=== PATIENT | female | born 1975 | race Caucasian/White ===

== ENCOUNTER 2017-07-08 20:10 | Emergency (ER) | payer BC ==
[2017-07-08] MEDS ORDERED: HYDROmorphone 2 MG/ML SDV IVPUSH ONE (20:34)
[2017-07-08] MEDS ORDERED: Ondansetron 4 MG/2 ML SDV IVPUSH ONE (20:34)
[2017-07-08] MEDS ORDERED: Sodium Chloride 0.9% 1,000 ML IV SCH (20:45)
[2017-07-08] MEDS ORDERED: Iopamidol 755 Mg/ML 100 ML Bottle IV ONE (21:38)
[2017-07-09] MEDS ORDERED: hydrOXYzine HCl 50 MG/ML SDV IM ONE (00:03)
[2017-07-09 00:33] VITALS: BP 132/82
--- NOTE | 2017-07-09 04:06 | ER ---
DATE SEEN: 07/08/2017 ADDENDUM: CHIEF COMPLAINT: Abdominal pain. This is an addendum to the clinical note by Dr. Olson's related CT scan report to the patient. The CT showed some two poorly described masses in the adnexa, possibly cysts, which could or could not account for the patient's symptoms. I suggested that the patient be seen on Monday by Josie Santa to obtain an ultrasound for further delineation of this masses and the patient was given Vistaril 100 mg IM to help with the nausea. She was discharged in satisfactory condition at 12:15 a.m. /[id number] YULIYA/CANDE
--- NOTE | 2017-07-10 20:10 | ER ---
DATE SEEN: 07/08/2017 TIME SEEN: The patient was seen at 2000 hours. HISTORY OF PRESENT ILLNESS: This 41-year-old, , 2, para 2 with history of one previous comes in with a sudden onset at 1700 hours of a 10/10 shooting sharp pressure-like suprapubic left and right lower quadrant pain that is nonradiating. She had the urge to pass her bowels and bladder with minimal success. Pain is 10/10 and then gradually relented to 5/10 in intensity after she lied down. Again she got up after the pain was increasing, had a hot shower and this resulted in relief. However, the pain came back at 1940 hours and has been relentless. She presents to the ED about 2000 hours. She has mild nausea, but denies fever, chills, vomiting, constipation, diarrhea, blood in her black tarry stools. Last menstrual period was 5 days ago 07/03/2017, it was not abnormal. Today, she did not perform any unusual tasks. She lifts some chunks of wood, but not heavy loads of wood, there were small pieces of wood and not significant. She denies dyspareunia or vaginal discharge PREVIOUS SURGERY: , appendectomy (in high school). No past medical history of kidney infections - pyelonephritis but she has had intermittent mild urinary tract infections of minimal consequence. . No history of abuse or abdominal trauma. No history of falls. REVIEW OF SYSTEMS: Negative except for as noted above. No history of renal stones or abdominal adhesions. HEENT is negative. No sinusitis, sore throat, cough, no shortness of breath, chest pain, irregular heartbeat. No history of heart disease, rheumatic fever. No chest pain. No syncope, near syncope, or palpitations. GI: No constipation, blood in her stool, black tarry stool, or change in bowels. No diarrhea. No GERD. No ulcer disease. No GI bleed. No hematemesis. No esophagitis. : 2, para 2-0-0-2, one . Last menstrual period 07/03/2017. MUSCULOSKELETAL: Negative. No history of gout or arthritis. NEURO: Negative history for headaches, seizures, or head injury. PSYCHIATRIC: Negative. PHYSICAL EXAMINATION: VITAL SIGNS: Blood pressure 167/97, heart rate 75 and regular, respirations 21, oxygen saturation 99%, temperature is 36.9 degrees centigrade. GENERAL: The patient is in marked pain. She has marked pain in her lower pelvis. She would like to get up and move around from the chair to the gurney. HEENT: PERRLA intact. Pharynx without abnormality. No thyromegaly. No masses in neck. No cervical adenopathy. NECK: Supple. Nontender neck. LUNGS: Clear to auscultation without rales, rhonchi, or wheezes. HEART: S1, S2. No murmur. ABDOMEN: Soft with marked guarding in the lower abdominal wall, any excessive pressure causes marked pain. She has no CVA percussion tenderness. PELVIC: Not performed. EXTREMITIES: Lower extremities without edema, without linear fascial structure tenderness. Deep tendon reflexes present in the upper and lower extremities. Cranial nerves 2 through 12 intact. WORKING DIAGNOSES: Abdominal pain, rule out ovarian torsion, rule out ruptured ovarian cyst, rule out small bowel obstruction, rule out STD, rule out ectopic , rule out trauma, rule out volvulus adhesions, torsion or intussusception. PLAN: The patient received Dilaudid and 1000 mL of normal saline flush. CAT scan with IV contrast, CBC, CMP, lactic acid. Status discussed with Dr. Durán. The patient was transferred to his care. /[id number] GUERRERO/CANDE CALVO
== END 2017-07-09 00:20 | disposition home or self-care (01) ==
LOC: FB.ED 20:10
DX: R10.31 Right lower quadrant pain (principal)
CPT/HCPCS: 36415; 74177; 80053; 80305; 81025; 82150; 83605; 85025; 87491; 87591; 96361; 96372; 96374; 96375; 99284; J1170; J2405; J3410; J7040; Q9967

== ENCOUNTER 2018-11-14 15:27 | Emergency (ER) | payer BC ==
[2018-11-14] MEDS ORDERED: Ondansetron 4 MG Tab.DIS PO ONE (15:28)
[2018-11-14] MEDS ORDERED: Ondansetron 4 MG/2 ML SDV IVPUSH ONE (15:37)
[2018-11-14] MEDS ORDERED: Sodium Chloride 0.9% 1,000 ML IV ONE ×2 (15:37→17:07)
[2018-11-14] MEDS ORDERED: Pantoprazole 40 MG Vial IVPUSH ONE (15:38)
[2018-11-14] MEDS ORDERED: HYDROmorphone 2 MG/ML SDV IVPUSH ONE (15:40)
--- NOTE | 2018-11-14 15:47 | EDM.PDOC ---
ED HPI GENERAL MEDICAL PROBLEM - General Stated Complaint: NAUSEA VOMITTING Time Seen by Provider: 11/14/18 15:27 Source of Information: Reports: Patient, Family History Limitations: Reports: Other (abdominal pain) - History of Present Illness INITIAL COMMENTS - FREE TEXT/NARRATIVE: 42 y.o.w.f with a H/O hysterectomy/tubal ligation, came to the ed due to sudden onset of epigastic and RUQ abdominal pain, after eating spicy/fatty food. No trauma to abdomen. Pt felt extremely nauseated and was vomiting multiple times [employer]. She denies a GBD in the past. Her sister had similar symptoms, all tests were neg and after ponce GB was removed, her symptoms subside. No C/P, no F/C or any other acute medical issues. BP 139/78 RR 18 Pulse ox 100% on RA Pulse 105 Temp 36.8 Onset Date: 11/14/18 Onset Time: 13:00 Duration: Hour(s):, Getting Worse, Intermittent Location: Reports: Abdomen Quality: Reports: Ache, Burning, Dull, Pressure Severity: Moderate Improves with: Reports: Medication, Rest Worsens with: Reports: Eating, Movement Context: Reports: Other Associated Symptoms: Reports: Loss of Appetite, Nausea/Vomiting, Weakness Abdominal Pain Score (Numeric/FACES): 4 - Related Data Allergies Allergy/AdvReac Type Severity Reaction Status Date / Time Penicillins Allergy Anaphylactic Verified 11/14/18 20:44 Shock Tetracyclines Allergy Cannot Verified 11/14/18 20:44 Remember Home Meds: Home Meds Citalopram [Celexa] 20 mg PO DAILY 07/08/17 [History] Diclofenac Sodium [IJD: Diclofenac Sodium] 75 mg PO WITHBREAKFAST 07/08/17 [ History] Ondansetron [Zofran ODT] 4 mg PO Q6H PRN #20 tab.dis 11/14/18 [Rx] Past Medical History - Past Surgical History HEENT Surgical History: Reports: Tonsillectomy GI Surgical History: Reports: Appendectomy Female Surgical History: Reports: Section, Tubal Ligation ED ROS GENERAL - Review of Systems Review Of Systems: See Below Constitutional: Reports: Decreased Appetite HEENT: Reports: No Symptoms Respiratory: Reports: No Symptoms Cardiovascular: Reports: No Symptoms Endocrine: Reports: No Symptoms GI/Abdominal: Reports: Abdominal Pain, Nausea, Vomiting : Reports: No Symptoms Musculoskeletal: Reports: No Symptoms Skin: Reports: No Symptoms Neurological: Reports: No Symptoms Psychiatric: Reports: No Symptoms Hematologic/Lymphatic: Reports: No Symptoms Immunologic: Reports: No Symptoms ED EXAM, GI/ABD - Physical Exam Exam: See Below Exam Limited By: No Limitations General Appearance: Alert, WD/WN, Moderate Distress, Obese Eyes: Bilateral: Normal Appearance Ears: Normal External Exam Nose: Normal Inspection Throat/Mouth: Normal Lips, Normal Voice, No Airway Compromise, Other (dry mucsal membranes) Head: Atraumatic, Normocephalic Neck: Normal Inspection, Supple, Non-Tender Respiratory/Chest: No Respiratory Distress, Lungs Clear, Normal Breath Sounds, No Accessory Muscle Use Cardiovascular: Normal Peripheral Pulses, Regular Rate, Rhythm, No Edema, No Gallop, No JVD, No Murmur GI/Abdominal Exam: No Mass, Pelvis Stable, Tender (RUQ af abdomen and epigatsric ), Other (nl. soft stool, no blood) (Female) Exam: Deferred Rectal (Female) Exam: Deferred Back Exam: Normal Inspection, Full Range of Motion Extremities: Normal Inspection, Normal Range of Motion, Non-Tender, No Pedal Edema Neurological: Alert, Oriented, CN II-XII Intact, Normal Cognition, Normal Gait Psychiatric: Normal Affect, Normal Mood Skin Exam: Warm, Dry, Intact, Normal Color, No Rash Lymphatic: No Adenopathy Course - Vital Signs Text/Narrative:: 42 y.o.w.f with a H/O hysterectomy/tubal ligation, came to the ed due to sudden onset of epigastic and RUQ abdominal pain, after eating spicy/fatty food. No trauma to abdomen. Pt felt extremely nauseated and was vomiting multiple times [employer]. She denies a GBD in the past. Her sister had similar symptoms, all tests were neg and after ponce GB was removed, her symptoms subside. No C/P, no F/C or any other acute medical issues. BP 139/78 RR 18 Pulse ox 100% on RA Pulse 105 Temp 36.8 PE: WNWD WF with N/V and upper ab. pain Imaging: US abd. limited: Neg as per RAD. HIDA maya not available. Labs: CBC: WBC 10.1 HGB 16.1 HCT 46.7 Na 137 K 3.3 BUN 20 Cr. 0.9 GFR > 60 Amylase Nl Ca 9.5 Impression: RUQ abd. and epigastric pain with neg U/S , Dehydration Tx: Zofran, NS, KAIT costataroni, Teresitaid, Reglan Reexam: Improved. Pt stated she is ready to go home and F/U at [facility] for further W/U and a possible HIDA scan, no available at this time in this Hospital. Plan: D/C with instructions. Last Recorded V/S: Last Vital Signs Temp 36.2 C 11/14/18 15:27 Pulse 96 11/14/18 17:15 Resp 18 11/14/18 17:15 BP 128/78 11/14/18 17:15 Pulse Ox 100 11/14/18 17:15 - Orders/Labs/Meds Orders: Active Orders 24 hr Category Date Time Status Abdomen Ltd [US] Stat Exams 11/14/18 15:37 Taken UA W/MICROSCOPIC [URIN] Stat Lab 11/14/18 17:36 Ordered Labs: Laboratory Tests 11/14/18 11/14/18 Range/Units 15:45 15:45 WBC 10.2 (4.5-12.0) X10-3/uL RBC 5.23 H (3.23-5.20) x10(6)uL Hgb 16.1 H (11.5-15.5) g/dL Hct 46.7 (30.0-51.3) % MCV 89.3 (80-96) fL MCH 30.8 (27.7-33.6) pg MCHC 34.5 (32.2-35.4) g/dL RDW 13.4 (11.5-15.5) % Plt Count 366 (125-369) X10(3)uL MPV 8.4 (7.4-10.4) fL Add Manual Diff Yes Neutrophils % (Manual) 95 H (46-82) % Lymphocytes % (Manual) 2 L (13-37) % Monocytes % (Manual) 3 L (4-12) % Sodium 137 (135-145) mmol/L Potassium 3.3 L (3.5-5.3) mmol/L Chloride 101 (100-110) mmol/L Carbon Dioxide 22 (21-32) mmol/L BUN 20 H (7-18) mg/dL Creatinine 0.9 (0.55-1.02) mg/dL Est Cr Clr Drug Dosing TNP Estimated GFR (MDRD) > 60 (>60) BUN/Creatinine Ratio 22.2 H (9-20) Glucose 129 H (80-116) mg/dL Calcium 9.5 (8.6-10.2) mg/dL Total Bilirubin 1.1 (0.1-1.3) mg/dL Direct Bilirubin 0.20 (0.10-0.20) mg/dL AST 17 (5-25) IU/L ALT 39 H (12-36) U/L Alkaline Phosphatase 93 (56-112) IU/L Total Protein 7.9 (6.0-8.0) g/dL Albumin 4.4 (3.5-5.2) g/dL Amylase 29 (25-115) U/L Meds: Medications Discontinued Medications Generic Name Dose Route Start Last Admin Trade Name Freq PRN Reason Stop Dose Admin Al Hydroxide/Mg Hydroxide 15 0 ml 11/14/18 16:29 11/14/18 17:13 ml/ Lidocaine HCl 15 ml PO 11/14/18 16:30 30 ml ONETIME ONE Administration Hydromorphone HCl 0.5 mg 11/14/18 15:40 11/14/18 15:52 Dilaudid IVPUSH 11/14/18 15:41 0.5 mg ONETIME ONE Administration Sodium Chloride 1,000 mls @ 999 mls/hr 11/14/18 15:37 11/14/18 15:50 Normal Saline IV 11/14/18 16:37 999 mls/hr .BOLUS ONE Administration Sodium Chloride 1,000 mls @ 999 mls/hr 11/14/18 17:07 11/14/18 17:17 Normal Saline IV 11/14/18 18:07 999 mls/hr .BOLUS ONE Administration Metoclopramide HCl 10 mg 11/14/18 17:38 11/14/18 17:45 Reglan IVPUSH 11/14/18 17:39 10 mg ONETIME ONE Administration Ondansetron HCl 8 mg 11/14/18 15:37 11/14/18 15:50 Zofran IVPUSH 11/14/18 15:38 8 mg ONETIME ONE Administration Pantoprazole Sodium 40 mg 11/14/18 15:38 11/14/18 15:54 Protonix Iv IVPUSH 11/14/18 15:39 40 mg ONETIME ONE Administration Potassium Chloride 40 meq 11/14/18 17:05 11/14/18 17:14 Klor-Con M20 PO 11/14/18 17:06 40 meq ONETIME ONE Administration Departure - Departure Time of Disposition: 18:26 Disposition: Home, Self-Care 01 Condition: Good Clinical Impression: Hypokalemia Abdominal pain Qualifiers: Abdominal location: upper abdomen, unspecified Qualified Code(s): R10.10 - Upper abdominal pain, unspecified - Discharge Information Prescriptions: Ondansetron [Zofran ODT] 4 mg PO Q6H PRN #20 tab.dis PRN Reason: Nausea Instructions: Ondansetron tablets, Hypokalemia, Abdominal Pain, Adult, Easy-to- Read Referrals: Josie Salomon PROCESS OWNER [Primary Care Provider] - Forms: ED Department Discharge Additional Instructions: Please advance diet as tolerated, please take Zofran for nausea as recommended, please f/u in am with [facility] for further care, possible HIDA scan to evaluate your RUQ abd. pain. Olease come back if your symptoms get worse acutely - My Orders Last 24 Hours: My Active Orders 11/14/18 15:37 Abdomen Ltd [US] Stat 11/14/18 17:36 UA W/MICROSCOPIC [URIN] Stat - Assessment/Plan Last 24 Hours: My Active Orders 11/14/18 15:37 Abdomen Ltd [US] Stat 11/14/18 17:36 UA W/MICROSCOPIC [URIN] Stat
[2018-11-14] MEDS ORDERED: Alum Hydroxide/Mag Hydroxide 15 ML, Lidocaine 2% 15 ML PO ONE ×2 (16:29)
[2018-11-14] MEDS ORDERED: Potassium Chloride 20 MEQ Tab.ER PO ONE (17:05)
[2018-11-14] MEDS ORDERED: Metoclopramide 10 MG/2 ML SDV IVPUSH ONE (17:38)
[2018-11-14 20:56] VITALS: BP 128/78
--- NOTE | 2018-11-15 10:30 | US ---
INDICATION: Right upper quadrant abdominal pain. RIGHT UPPER QUADRANT/GALLBLADDER ULTRASOUND: Multiple ultrasonic images were obtained 11/14/18 - no comparisons were available, except to note a CT scan from 07/08/2017. The gallbladder was felt to be within normal limits in size, measuring 8.6 x 3.7 x 3.7 cm, without evidence of wall thickening, calculi, sludge, or positive ultrasonic [place] sign. No pericholecystic fluid was seen. The gallbladder does appear to be somewhat distended but was otherwise unremarkable. The common bile duct was normal at 3.7 mm. The pancreas was not well visualized. No gross abnormality was seen. The liver appears echogenic, compatible with fatty liver. The right kidney measured 11 x 4.3 x 4.9 cm and appeared normal. The aorta and IVC were not evaluated. IMPRESSION: 1. Somewhat distended appearing, otherwise normal gallbladder with negative ultrasonic [place] sign - correlate clinically. 2. Fatty liver. 3. Pancreas not well visualized. Report was called to Dr. Lewis at 1628 hours on 11/14/18. [facility] CENTERKrish
== END 2018-11-14 18:55 | disposition home or self-care (01) ==
LOC: FB.ED 15:27
DX: E86.0 Dehydration (principal); R10.10 Upper abdominal pain, unspecified; E87.6 Hypokalemia; Z88.0 Allergy status to penicillin; Z88.1 Allergy status to other antibiotic agents; Z79.899 Other long term (current) drug therapy
CPT/HCPCS: 36415; 76705; 80048; 80076; 82150; 85025; 96361; 96374; 96375; 99284; A9270; C9113; J1170; J2405; J2765; J7030

== ENCOUNTER 2018-11-23 06:40 | Day surgery (SDC) | payer BC ==
[2018-11-23] MEDS ORDERED: Rocuronium 100 MG/10 ML MDV IV ONE (06:41)
[2018-11-23] MEDS ORDERED: Ketorolac 30 MG/ML SDV IVPUSH ONE (06:41)
[2018-11-23] MEDS ORDERED: Neostigmine Methylsulfate 10 MG/10 ML MDV IVPUSH ONE (06:41)
[2018-11-23] MEDS ORDERED: Glycopyrrolate 0.2 MG/ML 5 ML MDV IV ONE (06:41)
[2018-11-23] MEDS ORDERED: Propofol 200 MG/20 ML SDV IV ONE (06:41)
[2018-11-23] MEDS ORDERED: Scopolamine 1.5 MG Transdermal Patch TOP ONE (06:41)
[2018-11-23] MEDS ORDERED: Ondansetron 4 MG/2 ML SDV IVPUSH ONE (06:41)
[2018-11-23] MEDS ORDERED: Midazolam 1 MG/ML 2 ML SDV IV ONE (06:41)
[2018-11-23] MEDS ORDERED: Lactated Ringers 1,000 ML IV ONE (06:41)
[2018-11-23] MEDS ORDERED: fentaNYL 100 MCG/2 ML SDV IV ONE (06:41)
[2018-11-23] MEDS ORDERED: Labetalol 20 MG/4 ML Syringe IV ONE (06:41)
[2018-11-23] MEDS ORDERED: HYDROmorphone 2 MG/ML SDV IV ONE (06:41)
[2018-11-23] MEDS ORDERED: Lactated Ringers 1,000 ML IV SCH (06:45)
--- NOTE | 2018-11-23 08:10 | PCM.HPR ---
H & P Addendum review - H & P Addendum Review Date of Original H & P: 11/20/18 Date Reviewed: 11/23/18 Time Reviewed: 08:00 Patient was Examined: No Changes
--- NOTE | 2018-11-23 09:19 | PCM.OPNOTE ---
- General Post-Op/Procedure Note Date of Surgery/Procedure: 11/23/18 Operative Procedure(s): Lap Chloe Pre Op Diagnosis: Chronic Cholecystitis Post-Op Diagnosis: Same Anesthesia Technique: General ET Tube Primary Surgeon: Jordan De La Cruz Pathology: GB EBL in mLs: 5 Complications: None Condition: Good
[2018-11-23] MEDS ORDERED: Morphine 2 MG/ML Syringe IVPUSH PRN (09:23)
[2018-11-23] MEDS ORDERED: Acetaminophen/HYDROcodone 325-5 MG Tab PO PRN (09:23)
[2018-11-23 12:09] VITALS: BP 125/73
--- NOTE | 2018-11-23 13:02 | OR ---
DATE OF OPERATION: 11/23/2018 SURGEON: Jordan De La Cruz MD PREOPERATIVE DIAGNOSIS: Chronic cholecystitis. POSTOPERATIVE DIAGNOSIS: Chronic cholecystitis. PROCEDURE: Laparoscopic cholecystectomy. ANESTHESIA: General. PROCEDURE IN DETAIL: The patient was brought to the operating room where general endotracheal anesthesia was administered. The abdomen was prepped with ChloraPrep and draped sterilely. An infraumbilical incision was made and extended into the peritoneal cavity without difficulty. The Sangeeta cannulator was introduced and pneumoperitoneum obtained. The remaining three 5 mm ports were placed in the usual positions. The patient was placed in reverse Trendelenburg position and rotated to the left. The gallbladder was grasped and had some filmy adhesions to the undersurface that were taken down with blunt to totally expose the gallbladder. The cystic duct and cystic artery were dissected free without difficulty. Each of these structures were doubly clipped proximally and once distally and then transected. The gallbladder was removed from the bed of the liver using electrocautery. There was some inflammation present. A posterior branch of the cystic artery was present which was clipped proximally and cauterized distally. A small hole was made in the posterior wall of the gallbladder with some clear bile leakage that was suctioned. Once the gallbladder was completely freed up, was brought out through the umbilical incision and sent for pathology review. Right upper quadrant was thoroughly inspected and irrigated and hemostasis was assured. All clips were in place. Ports were removed under direct vision and remained hemostatic. Umbilical fascia was closed with [id number] #0 Vicryl. The skin was closed with #4-0 Vicryl subcuticular sutures. Benzoin and Steri-Strips were placed and Band-Aids applied. The patient tolerated the procedure well. Estimated blood loss 5 mL. She returned to postanesthesia in stable condition. /[id number] ALFREDO/CANDE
== END 2018-11-23 11:58 | disposition home or self-care (01) ==
LOC: FB.SDS 06:40
PROVIDERS: ATTEND Surgery
DX: K81.1 Chronic cholecystitis (principal); I10 Essential (primary) hypertension; K21.9 Gastro-esophageal reflux disease without esophagitis; Z87.891 Personal history of nicotine dependence
CPT/HCPCS: 47562; 81025; 88304; A9270; J1170; J1885; J2250; J2405; J2704; J2710; J3010; J3490; J7120